=== PATIENT | female | born 1970 | race Caucasian/White ===

== ENCOUNTER 2019-01-18 11:38 | Emergency (ER) | payer BC, OTHER ==
[2019-01-18] MEDS: CEFTRIAXONE 1 GM INJ IM (13:29)
[2019-01-18] MEDS: ALPRAZOLAM 0.25 MG TAB PO (13:29)
== END 2019-01-18 14:09 | disposition home or self-care (01) ==
LOC: FTE 11:38
DX: J44.1 Chronic obstructive pulmonary disease with (acute) exacerbation (principal); F17.210 Nicotine dependence, cigarettes, uncomplicated
CPT/HCPCS: 71046; 93005; 96372; 99284-25